=== PATIENT | female | born 1995 | race American Indian/Alaskan Native ===

== ENCOUNTER 2018-03-26 08:10 | Inpatient (IN) | payer MEDICAID ==
[2018-03-26] MEDS ORDERED: ZOFRAN IV PRN (08:52)
[2018-03-26 09:28] LABS: Hematocrit 38.3 % (30.3-42.9); Hemoglobin 12.8 gm/dl (10.1-14.3); Mean Corpuscular HGB Conc 33 % (30-34); Mean Corpuscular Volume 82 fl (79-97); Platelet Count 164 K/mm3 (140-440); Red Blood Count 4.68 M/mm3 (3.65-5.03); Red Cell Distribution Width 14.8 % (13.2-15.2)
[2018-03-26] MEDS ORDERED: NARCAN 0.4 MG/1 ML IV PRN (10:00)
[2018-03-26] MEDS ORDERED: CERVIDIL VG NR (10:00)
[2018-03-26] MEDS ORDERED: XYLOCAINE 2% INFILTRATI ONE (10:00)
[2018-03-26] MEDS ORDERED: BRETHINE SUB-Q PRN (10:00)
--- NOTE | 2018-03-26 15:04 | History and Physical Report ---
History of Present Illness Date of examination: 03/26/18 Date of admission: 03/26/18 08:38 Chief complaint: Presents for Postdates Induction History of present illness: Late transfer into care at 25 5/7 Weeks, co-managed with [facility]. arrhythmia resolved. Co-vika with Derm due to rash late in 3rd trimester Past History Past Medical History: no pertinent history Past Surgical History: no surgical history Family/Genetic History: diabetes (mother) Social history: no significant social history, single - Obstetrical History Expected Date of Delivery: 03/16/18 Actual Gestation: 41 Week(s) 3 Day(s) : 1 Medications and Allergies Allergies Allergy/AdvReac Type Severity Reaction Status Date / Time No Known Allergies Allergy Verified 03/24/18 11:10 Home Medications Medication Instructions Recorded Confirmed Last Taken Type Multivitamin Tablet 1 tab PO DAILY 03/26/18 03/26/18 03/25/18 10:00 History 1 Active Meds: Active Medications Butorphanol Tartrate (Stadol) 2 mg IV Q2H PRN PRN Reason: Pain , Severe (7-10) Ephedrine Sulfate (Ephedrine Sulfate) 10 mg IV Q2M PRN PRN Reason: Hypotension Lactated Ringer's (Lactated Ringers) 1,000 mls @ 125 mls/hr IV DIRECT OLGA Oxytocin/Sodium Chloride (Pitocin/Ns 20 Unit/1000ml Drip) 20 units in 1,000 mls @ 125 mls/hr IV DIRECT OLGA Mineral Oil (Mineral Oil) 30 ml PO QHS PRN PRN Reason: Constipation Naloxone HCl (Narcan 0.4 Mg/1 Ml) 0.1 mg IV Q2MIN PRN PRN Reason: Res Rate </= 8 or 02 SAT < 92% Ondansetron HCl (Zofran) 4 mg IV Q8H PRN PRN Reason: Nausea And Vomiting Terbutaline Sulfate (Brethine) 0.25 mg SUB-Q ONCE PRN PRN Reason: Hyperstimulation/Hypertonicity Review of Systems All systems: negative - Vital Signs Vital signs: Vital Signs Pulse Resp BP 113 H 15 121/71 03/26/18 09:28 03/26/18 09:28 03/26/18 09:28 Temp Pulse Resp BP Pulse Ox 113 H 15 121/71 03/26/18 09:28 03/26/18 09:28 03/26/18 09:28 - Physical Exam Breasts: Positive: normal Cardiovascular: Regular rate Lungs: Positive: Clear to auscultation, Normal air movement Abdomen: Positive: normal appearance, soft, normal bowel sounds Genitourinary (Female): Positive: normal external genitalia, normal perenium Vagina: Positive: normal moisture Uterus: Positive: enlarged - Obstetrical FHR: category 1 Uterine Contraction Monitor Mode: External Cervical Dilatation: 3 Cervical Effacement Percentage: 60 station: -1 Uterine Contraction Pattern: Irregular Uterine Tone Measurement Phase: Resting Uterine Contraction Intensity: Mild Results Result Diagrams: 03/26/18 09:05 Abnormal lab results 03/26/18 Range/Units 09:05 MCH 27 L (28-32) pg All other labs normal. Assessment and Plan A: IUP @ 41 3/7 Weeks Category I Tracing GBS Negative P: Admit to L&D per routine orders Continue Cervidil Induction
[2018-03-26] MEDS: STADOL IV PRN ×2 (18:17→23:11)
[2018-03-26] MEDS: LACTATED RINGERS 1,000 ML IV SCH (18:20)
--- NOTE | 2018-03-26 18:46 | Progress Note ---
Assessment and Plan A: IUP @ 41 3/7 Weeks Category I Tracing GBS Negative P: Cervidil removed Start Low Dose Pitocin Subjective - Subjective Date of service: 03/26/18 Interval history: Late transfer into care at 25 5/7 Weeks, co-managed with [facility]. arrhythmia resolved. Co-vika with Derm due to rash late in 3rd trimester Patient reports: movement normal, contractions, other (Resting well under IV pain control) Objective - Vital Signs Vital Signs: Vital Signs - 12hr 03/26/18 09:28 Pulse Rate 113 H Respiratory 15 Rate Blood Pressure 121/71 [Left] - Exam Breasts: normal Cardiovascular: Regular rate Lungs: Clear to auscultation, Normal air movement Abdomen: Present: normal appearance, soft, normal bowel sounds Uterus: Present: normal, firm, fundal height above umbilicus FHR: category 1 Uterine Contraction Monitor Mode: External Cervical Dilatation: 3 (VTX, Intact) Cervical Effacement Percentage: 60 station: -2 Uterine Contraction Pattern: Irregular Uterine Tone Measurement Phase: Resting Uterine Contraction Intensity: Mild Extremities: normal - Labs Labs: Abnormal Labs 03/26/18 09:05 MCH 27 L Laboratory Results - last 24 hr 03/26/18 03/26/18 03/26/18 09:05 09:05 09:05 WBC 9.4 RBC 4.68 Hgb 12.8 Hct 38.3 MCV 82 MCH 27 L MCHC 33 RDW 14.8 Plt Count 164 RPR Nonreactive Blood Type B POSITIVE Antibody Screen Negative
[2018-03-26] MEDS: PITOCin/NS 30 UNIT/500ML 30 UNITS/500 ML BAG IV SCH ×2 (20:51→21:50)
[2018-03-26] MEDS ORDERED: MINERAL OIL PO PRN (22:00)
--- NOTE | 2018-03-27 01:35 | Anesthesia Consultation ---
Anesthesia Consult and Med Hx Date of service: 03/27/18 - Airway Anesthetic Teeth Evaluation: Good ROM Head & Neck: Adequate Mental/Hyoid Distance: Adequate Mallampati Class: Class II Intubation Access Assessment: Probably Good - Pre-Operative Health Status ASA Pre-Surgery Classification: ASA2 Proposed Anesthetic Plan: Epidural, Spinal - Pulmonary Hx Asthma: No COPD: No Hx Pneumonia: No - Cardiovascular System Hx Hypertension: No - Central Nervous System Hx Seizures: No Hx Psychiatric Problems: No - Endocrine Hx Renal Disease: No Hx End Stage Renal Disease: No Hx Hypothyroidism: No Hx Hyperthyroidism: No - Hematic Hx Anemia: No Hx Sickle Cell Disease: No - Other Systems Hx Alcohol Use: No
[2018-03-27] MEDS ORDERED: NARCAN 2 MG/2 ML IV PRN (01:36)
[2018-03-27] MEDS ORDERED: fentaNYL-BUPIV 2 MCG/ML-0.125% 200 MCG/100 ML BAG EPIDURAL SCH (02:00)
[2018-03-27] MEDS: LACTATED RINGERS 1,000 ML IV SCH (02:20)
[2018-03-27] MEDS ORDERED: XYLOCAINE MPF 2% ONE (03:19)
--- NOTE | 2018-03-27 07:04 | Anesthesia Day of Surgery ---
Anesthesia Day of Surgery - Day of Surgery Patient Examined: Yes Patient H&P Reviewed: Yes Patient is NPO: Yes Beta Blockers: No Cardiac Clearance: No Pulmonary Clearance: No Kevin's Test: N/A
[2018-03-27] MEDS ORDERED: METHERGINE IM ONE ×2 (07:41→08:19)
[2018-03-27] MEDS: PITOCin/NS 20 UNIT/1000ML DRIP 20 UNITS/1,000 ML BAG IV SCH ×3 (07:45→17:12)
--- NOTE | 2018-03-27 08:29 | Procedure Note ---
OB Delivery Note - Delivery Date of Delivery: 03/27/18 (0733) Surgeon: DINORA YOUNGER Estimated blood loss: 300cc - Vaginal Delivery presentation: vertex Delivery position: OA Intrapartum events: febrile- temp >100.3 (102.7 immediately after delivery) Delivery induction: cervidil Delivery augmentation: rupture of membranes (SROM of clear fluids at 2230 on 03/26/2018), pitocin Delivery monitor: external FHT, external uterine Delivery placenta: spontaneous Delivery cord: 3 umbilical vessels Episiotomy: none Delivery laceration: 2nd degree Delivery repair: vicryl Anesthesia: epidural Delivery comments: of a live 7'12 female over a 2nd degree perineal laceration with Apgars of 8 and 9 at 0733 on 03/27/2018 under epidural anesthesia. Infant directly to maternal abd/chest, skin to skin contact. Spontaneous delivery of placenta complete and intact with [place] side presenting at 0742. Heavy uterine bleeding after placenta delivery. Pitocin ran wide open and Methergine 0.2mg given IM. Vigorous external uterine massage; Uterine bleeding became light. Delayed cord clamping and cutting; Cord cut by maternal grandmother. Perineal laceration repaired with 2-[address]-1. Placenta to pathology due to maternal and fever. - Infant A at 1 minute: 8 at 5 minutes: 9 Gender: Female (7'12)
[2018-03-27] MEDS ORDERED: LANSINOH TP PRN (08:30)
[2018-03-27] MEDS ORDERED: CYTOTEC ONE (08:55)
[2018-03-27] MEDS ORDERED: BENADRYL PO PRN (09:00)
[2018-03-27] MEDS ORDERED: TYLENOL PO ONE (09:00)
[2018-03-27] MEDS ORDERED: SODIUM CHLORIDE FLUSH SYRINGE 10 ML IV PRN (09:00)
[2018-03-27] MEDS ORDERED: CYTOTEC PR ONE (09:21)
[2018-03-27] MEDS: CLEOCIN 900 MG/50 mL 900 MG/50 ML BAG IV SCH ×2 (09:30→17:13)
[2018-03-27] MEDS ORDERED: DULCOLAX PR PRN (10:00)
[2018-03-27] MEDS: AMPICILLIN/NS 2 GM/100 ML 2 GM/100 ML BAG IV SCH ×2 (11:52→18:59)
[2018-03-27] MEDS ORDERED: DERMOPLAST TP PRN (12:00)
[2018-03-27] MEDS: NORCO 5/325 PO PRN (13:51)
[2018-03-27] MEDS: IBUPROFEN PO SCH ×2 (13:52→21:33)
[2018-03-27] MEDS: FEOSOL PO SCH (21:33)
[2018-03-27] MEDS ORDERED: MILK OF MAGNESIA PO PRN (22:00)
[2018-03-27 22:23] LABS: Hematocrit 33.7 % (30.3-42.9); Hemoglobin 11.2 gm/dl (10.1-14.3)
[2018-03-28] MEDS: AMPICILLIN/NS 2 GM/100 ML 2 GM/100 ML BAG IV SCH ×2 (00:09→05:41)
[2018-03-28] MEDS: NORCO 5/325 PO PRN ×2 (00:16→11:46)
[2018-03-28] MEDS: CLEOCIN 900 MG/50 mL 900 MG/50 ML BAG IV SCH ×2 (01:25→11:45)
[2018-03-28] MEDS: IBUPROFEN PO SCH ×3 (04:06→21:21)
--- NOTE | 2018-03-28 11:37 | Progress Note ---
Assessment and Plan A: PPD#1 s/p Asymptomatic anemia Pain well controlled Stable Desires discharge home Undecided on contraception P: Routine PP orders Discharge home Today pending peds Subjective - Subjective Date of service: 03/28/18 Principal diagnosis: PPD#1 s/p Interval history: See H&P and delivery note Patient reports: appetite normal, voiding normally, pain well controlled, flatus, ambulating normally, no bowel movement : doing well, nursing well Objective - Vital Signs Latest vital signs: Vital Signs Temp Pulse Resp BP BP Pulse Ox 03/28/18 07:45 98.3 F 91 H 18 128/72 03/28/18 01:16 98.4 F 107 H 18 124/68 03/27/18 19:55 98.8 F 89 20 116/65 03/27/18 15:39 98.6 F 107 H 20 112/59 97 Intake and Output 03/27/18 03/28/18 03/28/18 23:59 07:59 15:59 Intake Total 1391.25 940 Output Total 1000 800 Balance 391.25 140 Intake: IV 1031.25 100 CLEOCIN 900 MG/50 mL 900 50 mg In 50 ml @ 100 mls/hr IV Q8H OLGA Rx#:[id number] PITOCin/NS 20 UNIT/1000ML 881.25 DRIP 20 units In 1,000 ml @ 125 mls/hr IV DIRECT OLGA Rx#:[id number] POLYCILLIN/NS 2 GM/100 ML 100 100 2 gm In 100 ml @ 100 mls /hr IV Q6HR OLGA Rx#: [id number] Oral 240 360 Intake, Free Water 120 480 Output: Urine 1000 800 Void 1000 800 Other: Total, Intake Amount 240 360 Total, Output Amount 400 800 - Exam Breasts: Present: normal, Cardiovascular: Present: Regular rate, Normal S1, Normal S2, No murmurs Lungs: Present: Clear to auscultation, Normal air movement Abdomen: Present: normal appearance, soft, tenderness, normal bowel sounds. Absent: distention Vulva: both: normal Uterus: Present: firm, fundal height below umbilicus (-1) Extremities: Present: normal Deep Tendon Reflex Grade: Normal +2
--- NOTE | 2018-03-28 11:39 | Discharge Summary ---
Providers - Providers Date of Admission: 03/26/18 08:38 Date of discharge: 03/28/18 Attending physician: SHARRI JONES MD Primary care physician: SHARRI JONES MD Hospitalization Reason for admission: IUP at term Delivery: Procedure details: See delivery note Episiotomy: none Laceration: none Other procedures: none complications: none Discharge diagnosis: IUP at term delivered Condition at discharge: Good Disposition: DC-01 TO HOME OR SELFCARE Plan - Provider Discharge Summary Activity: routine, no sex for 6 weeks, no heavy lifting 4 weeks, no strenuous exercise Diet: routine Instructions: routine Additional instructions: [] Smoking cessation referral if applicable(refer to patient education folder for contact #) [] Refer to [facility]'s [facility] Booklet Call your doctor immediately for: * Fever > 100.5 * Heavy vaginal bleeding ( >1 pad per hour) * Severe persistent headache * Shortness of breath * Reddened, hot, painful area to leg or breast * Drainage or odor from incision. * Keep incision clean and dry at all times and follow doctor's instructions regarding bathing/showering - Follow up plan Follow up: SHARRI JONES MD [Primary Care Provider] - 6 Weeks
[2018-03-28] MEDS: FEOSOL PO SCH ×2 (11:45→21:20)
[2018-03-28] MEDS: PRENATAL VITAMIN PO SCH (11:45)
[2018-03-28] MEDS ORDERED: TUCKS PAD TP PRN (21:01)
[2018-03-29] MEDS: IBUPROFEN PO SCH ×2 (04:48→14:17)
[2018-03-29] MEDS: NORCO 5/325 PO PRN (04:49)
[2018-03-29] MEDS: PRENATAL VITAMIN PO SCH (10:24)
[2018-03-29 13:55] VITALS: BP 124/78
[2018-03-29] MEDS: FEOSOL PO SCH (14:16)
== END 2018-03-29 14:50 | disposition home or self-care (01) | DRG 774 ==
LOC: LD 08:10 → UNDOADMIN 08:10 → LD 08:38 → OB 03-27 11:07
PROVIDERS: ADMIT Obstetrics & Gynecology; ATTEND Obstetrics & Gynecology
PROC: 10E0XZZ Delivery of Products of Conception, External Approach (ICD-10-PCS; principal; 2018-03-26)
PROC: 0KQM0ZZ Repair Perineum Muscle, Open Approach (ICD-10-PCS; 2018-03-26)
PROC: 3E0P7VZ Introduction of Hormone into Female Reproductive, Via Natural or Artificial Opening (ICD-10-PCS; 2018-03-26)
PROC: 3E0R3BZ Introduction of Anesthetic Agent into Spinal Canal, Percutaneous Approach (ICD-10-PCS; 2018-03-26)
PROC: 00HU33Z Insertion of Infusion Device into Spinal Canal, Percutaneous Approach (ICD-10-PCS; 2018-03-26)
DX: O99.02 Anemia complicating childbirth (principal); O75.2 Pyrexia during labor, not elsewhere classified; Z3A.41 41 weeks gestation of pregnancy; Z37.0 Single live birth; D64.9 Anemia, unspecified; O70.1 Second degree perineal laceration during delivery; Z83.3 Family history of diabetes mellitus
CPT/HCPCS: 36415; 59025; 59200; 76815; 76819; 85014; 85018; 85027; 86592; 86850; 86900; 86901; 88307; G0378; J0290; J0595; J2210; J2590; J7120